=== PATIENT | male | born 1990 | race African-American/Black ===

== ENCOUNTER 2017-07-31 05:57 | Day surgery (SDC) | payer MEDICAID ==
[~2017-07-31] VITALS: Ht 180.3 cm; Wt 73.9 kg
[~2017-07-31 05:57] MED LIST: HYDR15CR37 TP; TRIA15OI8 TP
[2017-07-31] MEDS ORDERED: LACTATED RINGERS 1,000 ML IV SCH (07:00)
[2017-07-31] MEDS ORDERED: CYCLOPENTOLATE HCL 1% OPHTH DROPS 2ML LEFTEYE ONE (07:00)
[2017-07-31] MEDS ORDERED: PHENYLEPHRINE HCL 10% OPHTH DROPS 5ML LEFTEYE ONE (07:00)
[2017-07-31] MEDS ORDERED: TROPICAMIDE 1% OPHTH DROPS 15ML LEFTEYE ONE (07:00)
[2017-07-31] MEDS ORDERED: HYALURONATE SODIUM 14 MG/ML 0.85ML SYRINGE IO ONE (07:29)
[2017-07-31] MEDS ORDERED: BALANCED SALT IRRIG SOLN COMB1 500ML OP SCH (07:30)
[2017-07-31] MEDS ORDERED: FENTANYL CITRATE/PF 50MCG/ML 2ML VIAL ONE (08:42)
[2017-07-31] MEDS ORDERED: MIDAZOLAM HCL 2 MG/2 ML VIAL ONE (08:42)
[2017-07-31] MEDS ORDERED: PROPOFOL 200MG/20ML VIAL IV ONE (08:57)
[2017-07-31] MEDS ORDERED: ONDANSETRON HCL 4MG/2ML VIAL IV PRN (09:45)
[2017-07-31] MEDS ORDERED: HYDROMORPHONE HCL/PF 2MG/ML CPJ IV PRN (09:45)
[2017-07-31] MEDS ORDERED: LABETALOL HCL 5MG/ML VIAL 20ML IV PRN (09:45)
[2017-07-31] MEDS ORDERED: MEPERIDINE HCL/PF 25MG/ML CPJ IV PRN (09:45)
[2017-07-31] MEDS ORDERED: LIDOCAINE HCL 2%/EPINEPHRINE 1:100,000 20 ML VIAL INFIL ONE (13:23)
[2017-07-31] MEDS ORDERED: NEO/POLYMYX B SULF/DEXAMETH OPHTH OINT 3.5GM ONE (13:23)
[2017-07-31] MEDS ORDERED: LIDOCAINE HCL/PF 2% 20 MG/ML 10ML VIAL ONE (13:23)
[2017-07-31] MEDS ORDERED: PREDNISOLONE ACETATE 1% OPHTH DROPS 1ML ONE (13:23)
[2017-07-31] MEDS ORDERED: CYCLOPENTOLATE HCL 1% OPHTH DROPS 2ML ONE (13:23)
[2017-07-31] MEDS ORDERED: ACETYLCHOLINE CHLORIDE INTRAOCULAR SOLUTION 1:100 ELECTROLYTE DILUENT IO ONE (13:23)
[2017-07-31] MEDS ORDERED: CIPROFLOXACIN 0.3% OPHTH SOLN 2.5ML ONE (13:23)
[2017-07-31] MEDS ORDERED: BUPIVACAINE HCL/PF 0.75% (7.5MG/ML) 10ML ONE (13:23)
[2017-07-31] MEDS ORDERED: BALANCED SALT IRRIG SOLN 15ML ONE (13:23)
[2017-07-31] MEDS ORDERED: TETRACAINE 0.5% OPHTH DROPS 4ML ONE (13:23)
== END 2017-07-31 11:00 | disposition home or self-care (01) ==
LOC: OR 05:57
PROVIDERS: ATTEND Ophthalmology
DX: H25.89 Other age-related cataract (principal)
CPT/HCPCS: 66984; J2250; J3010; J3490; V2632; J2704